=== PATIENT | male | born 1970 | race Caucasian/White ===

== ENCOUNTER → 2022-07-10 10:21 | Outpatient (CLI) | payer BC, SELFPAY ==
--- NOTE | ~2022-07-10 | CT_ITS ---
EXAMINATION: CT abdomen pelvis wo con DATE: 07/10/2022 10:36 INDICATION: Left flank pain TECHNIQUE: Computed tomography (CT) of the abdomen and pelvis was performed without intravenous contr ast. The dose-length product (DLP) was 780.61 mGy-cm. Automated exposure control and iterative recons truction technique were employed. COMPARISON: None FINDINGS: Minimal dependent atelectasis is present in the lung bases. The heart size is normal. The l iver, spleen, pancreas, gallbladder, and adrenal glands are normal. The right kidney is unremarkable. Nonobstructing stones of the left kidney measure 3 mm and 2 mm. No stones are identified in the uret ers or bladder. There is no hydronephrosis or hydroureter. No pathologically enlarged abdominal or pe lvic lymph nodes are identified. There is no free intraperitoneal gas or evidence of bowel obstructio n. The appendix is normal. There is mild lumbar spondylosis. IMPRESSION: 1. Nonobstructing left nephrolithiasis. Reviewed, dictated and finalized at location [facility]. [facility] [facility]
== END ==
PROVIDERS: PCP Internal Medicine; Visit Provider Internal Medicine
DX: R10.9 Unspecified abdominal pain (principal); N20.0 Calculus of kidney
CPT/HCPCS: 74176

== ENCOUNTER 2023-05-01 14:03 | Outpatient (CLI) | payer BC, SELFPAY ==
--- NOTE | ~2023-05-01 | CT_ITS ---
EXAMINATION: CT abdomen pelvis w con DATE: 05/01/2023 14:50 INDICATION: Bloating. Diarrhea. TECHNIQUE: Computed tomography (CT) of the abdomen and pelvis was performed with 100 CC Omnipaque 350 intravenous contrast. Automated exposure control and iterative reconstruction technique were employe d. Exam dose: 946.03 mGy-cm total exam DLP. COMPARISON: 07/10/2022 CT abdomen pelvis FINDINGS: Right lower lobe calcified pulmonary granuloma. Minimal dependent atelectasis at the lower lobes. Normal heart size. No pericardial or pleural effusion. Hepatic steatosis. Very small hepatic dome probable cyst. Normal splenic size. No pancreatic mass les ion or calcification or ductal dilatation. The gallbladder is present. No gallbladder wall thickening or pericholecystic fluid or fat stranding. No bile duct dilatation. Normal morphology of the adrenal glands. No renal mass lesion. Mild nonobstructive left nephrolithiasis. No other urinary tract calculi or hydroureteronephrosis. Th ere is prostate moderate enlargement and minimal prostate calcification. The urinary bladder appears unremarkable. Normal caliber of the abdominal aorta. No intraperitoneal or retroperitoneal or pelvic mass lesion or adenopathy or ascites. Small fat-containing left inguinal hernia. Normal appendix. No bowel obstruction, bowel wall thickening, pneumatosis or intraperitoneal free air . There are occasional small bowel air-fluid levels distally. No suspicious osteolytic or osteoblastic lesions are noted. [id number] degenerative change of t he thoracic and lumbar spine. IMPRESSION: Occasional distal small bowel air-fluid levels without obstruction or intraperitoneal fr ee air Normal appendix Mild nonobstructive left nephrolithiasis Hepatic steatosis Reviewed, dictated and finalized at [facility]. Reviewed, dictated and finalized at location A. PER IMPRESSION: Occasional distal small bowel air-fluid levels without obstruction or intraperitoneal free air Normal appendix Mild nonobstructive left nephrolithiasis Hepatic steatosis
[2023-05-01 14:41] LABS: Estimated Glomerular Filt Rate > 60
== END 2023-05-01 14:04 | disposition home or self-care (01) ==
PROVIDERS: PCP Internal Medicine; Visit Provider Internal Medicine
DX: N20.0 Calculus of kidney (principal); K76.0 Fatty (change of) liver, not elsewhere classified; R19.7 Diarrhea, unspecified
CPT/HCPCS: 74177; Q9967